=== PATIENT | female | born 1965 | race Caucasian/White ===

== ENCOUNTER 2017-01-15 10:29 | Emergency (ER) | payer OTHER ==
--- NOTE | ~2017-01-15 | EKG ---
PATIENT: ZEB SCOTT UNIT #: [id number] Ventricular Rate: 82 BPM Atrial Rate: 82 BPM P-R Interval: 140 ms QRS Duration: 74 ms Q-T Interval: 364 ms QTC Calculation(Bezet): 425 ms P [place]: 71 degrees Calculated R [place]: 63 degrees Calculated T [place]: 80 degrees Diagnosis Line: Normal sinus rhythm Diagnosis Line: Normal ECG Diagnosis Line: When compared with ECG of 05-DEC-2015 00:32, Diagnosis Line: T wave amplitude has increased in Anterior leads Diagnosis Line: Confirmed by RICHARD MATTHEW MD ([id number]) on 01/15/2017 Diagnosis Line: 10:22:10 PM INTERPRETING MD: VIPUL LEMOS
--- NOTE | ~2017-01-15 | CR72 ---
[facility] A Service of [facility] RADIOLOGY TEXT RESULTS PATIENT: ZEB SCOTT LOCATION: [facility] : 67 UNIT #: [id number] AGE: [address]: Migue Hay MD SEX: F ORDER DR: [id number] [facility] [address] [place], [place] [address] [id number] E MR#: [id number] Acc #: [id number] NAME: ZEB SCOTT : 1965 SEX: F STUDY DATE/TIME: 01/15/2017 10:23 UNIT: [facility] ROOM: STUDY DESCRIPTION: CR Chest Single View Portable Attending Physician: Migue Hay M.D. Ordering Physician: Migue Hay M.D. Primary Care Physician: [facility] MEDICAL IMAGING REPORT This report is preliminary unless electronic signature is present EXAM AP portable chest date: 01/15/2017 HISTORY 51-year-old female with complaints of chronic dyspnea. Symptoms have worsened this morning. The patient states she feels she has broken ribs, but no known injury. Cough and wheezing. History of cerebral aneurysm, prior heroin overdose, greater 30 years smoking history. COMPARISON PA and lateral chest radiograph 12/10/2015. AP portable chest radiograph 04/23/2014. FINDINGS Fine interstitial prominence in both lungs appears unchanged when compared to a more remote chest radiograph 04/23/2014, thought to represent chronic finding for this patient. No acute airspace disease is seen. Benign calcified granulomatous changes are present. No pleural effusion. No pneumothorax. Normal heart size. Benign calcified granulomatous change in the left paramediastinal region near the aortic knob, unchanged. IMPRESSION 1. Chronic-appearing interstitial prominence in both lungs. Background emphysematous changes are thought to be present. 2. No acute chest findings. 3. Benign calcified granulomatous changes. Dictated by... Adrianne Harkins M.D. THIS IS AN ELECTRONICALLY VERIFIED REPORT Adrianne Harkins M.D. at 01/16/2017 8:35 AM LL/vega [facility] A Service of [facility] RADIOLOGY TEXT RESULTS PATIENT: ZEB SCOTT LOCATION: [facility] : 67 UNIT #: [id number] AGE: [address]: Migue Hay MD SEX: F ORDER DR: TD: 01/15/2017 13:27 JOB #: [id number] MEDICAL IMAGING REPORT Page 1 of 1 COPY
[~2017-01-15 10:29] MED LIST: ALBUTEROL17 GM INH; BENTYL10 MG PO; CARAFATE1 GM PO; CIPRO PO; FLEXERIL PO; IBUPROFEN PO; IBUPROFEN600 MG PO; LORTAB 7.5-5001 TAB PO; MOBIC PO; MOTRIN20 MG/ML; NICOTINE TRANSD14 MG EXT; NO MEDICATIONS; PEPCID PO; PEPCID40 MG PO; PHENERGAN12.5 MG PO; PHENERGAN25 M1 PO; PHENERGAN25 MG PO; PLAVIX PO; PREDNISONE PO; PRILOSEC20 M1 PO; ST JOSEPH ASPIR81 M1 PO; ULTRAM PO; ZANTAC150 MG; ZITHROMAX PO; ZOFRAN ODT4 MG PO
[2017-01-15 10:33] LABS: BASOPHIL# 0.1 X10e3 (0-0.3); BASOPHIL% 0.8 % (0-2.5); EOSINOPHIL# 0.4 X10e3 (0-0.7); EOSINOPHIL% 2.7 % (0.0-7.0); HEMATOCRIT 40.5 % (35.0-45.0); HEMOGLOBIN 12.9 gm/dL (12.0-16.0); LYMPHOCYTE# 2.9 X10e3 (1.0-3.5); MEAN CELL VOLUME 86.1 FL (83-96); MEAN CORPUSCULAR HEMOGLOBIN 27.4 PG (28-34); MEAN CORPUSCULAR HGB CONC 31.8 g/dL (30-36); MEAN PLATELET VOLUME 7.8 FL (6.5-11.5); MONOCYTE# 0.7 X10e3 (0-1.0); MONOCYTE% 5.3 % (3.0-12.0); NEUTROPHIL# 9.8 X10e3 (1.5-7.1); NEUTROPHIL% 70.2 % (40-75); PLATELET COUNT 277 X10e3 (140-420); RED BLOOD COUNT 4.71 X10e (3.90-5.30); RED CELL DISTRIBUTION WIDTH 16.8 % (11.0-15.5); WHITE BLOOD COUNT 13.9 X10e3 (4.0-10.5)
[2017-01-15 10:37] LABS: DIFF IND NO
[2017-01-15 11:11] LABS: ALBUMIN SERUM 4.3 g/dL (3.5-5.0); BILIRUBIN, DIRECT 0.1 mg/dL (0.0-0.2); BILIRUBIN,INDIRECT 0.4 mg/dL (0.0-0.9); BILIRUBIN,TOTAL 0.5 mg/dL (0.2-2.0); BUN/CREATININE RATIO 12.5; CALCIUM SERUM 9.6 mg/dL (8.4-10.2); CREATININE SERUM 1.6 mg/dL (0.6-1.4); GLOM FILT RATE Estimated 37.2 mL/min (>60); POTASSIUM 4.1 mmol/L (3.5-5.1); PROTEIN TOTAL SERUM 7.7 g/dL (6.0-8.3)
[2017-01-15 12:03] LABS: POC - CKMB 1.2 ng/mL (0.0-7.9); POC - TROPONIN <0.05 ng/mL (<=0.05)
== END 2017-01-15 14:12 | disposition home or self-care (01) ==
LOC: CED 10:29
PROVIDERS: Emergency Medicine
DX: J44.1 Chronic obstructive pulmonary disease with (acute) exacerbation (principal); N28.9 Disorder of kidney and ureter, unspecified; F17.200 Nicotine dependence, unspecified, uncomplicated; Z90.710 Acquired absence of both cervix and uterus; Z98.890 Other specified postprocedural states
CPT/HCPCS: 36415; 71010; 80048; 80076; 82553; 83605; 84484; 85025; 87040; 93005; 94640; 96374; 99284; J2930

== ENCOUNTER 2017-03-29 16:01 | Emergency (ER) | payer OTHER | END 2017-03-29 16:07 | disposition home or self-care (01) | LOC: CED 16:01 | DX: Z53.21 Procedure and treatment not carried out due to patient leaving prior to being seen by health care provider (principal) ==

== ENCOUNTER 2017-04-25 20:23 | Emergency (ER) | payer OTHER ==
[~2017-04-25] VITALS: Ht 149.9 cm; Wt 40.8 kg
[2017-04-25] MEDS ORDERED: BP MED (20:39)
[2017-04-25] MEDS ORDERED: ALBUTEROL17 GM (20:40)
== END 2017-04-25 20:55 | disposition left against medical advice (07) ==
LOC: SED 20:23
DX: Z53.21 Procedure and treatment not carried out due to patient leaving prior to being seen by health care provider (principal)